=== PATIENT | female | born 1935 | race Caucasian/White ===

== ENCOUNTER 2019-08-12 18:12 | Inpatient (IN) | payer OTHER ==
[~2019-08-12] VITALS: Ht 167.6 cm; Wt 81.2 kg
[2019-08-12 18:49] LABS: Basophils # (auto) 0.1 uL; Basophils % (auto) 0.8 % (0.0-2.0); Eosinophils # (auto) 0.1 uL; Hematocrit 42.4 % (36.0-46.0); Hemoglobin 14.2 g/dL (12.2-16.2); Lymphocytes # (auto) 1.4 uL; Lymphocytes % (auto) 19.9 % (10.0-50.0); Mean Corpuscular Hemoglobin 30.4 pg (28.0-32.0); Mean Corpuscular Hgb Conc. 33.5 g/dL (32.0-36.0); Mean Corpuscular Volume 90.9 fL (80.0-100.0); Monocytes # (auto) 0.7 uL; Neutrophils # (auto) 4.8 uL; Neutrophils % (auto) 67.3 % (37.0-80.0); Platelet Count (auto) 258 10^3/uL (140-450); Red Blood Cells 4.66 10^6/uL (4.0-5.20); Red Cell Distribution Width 13.8 % (11.8-14.3); White Blood Cell 7.2 10^3/uL (4.4-10.8)
[2019-08-12 19:09] LABS: INR 1.04 (0.9-1.15)
[2019-08-12 19:28] LABS: Albumin 3.5 g/dL (3.4-5.0); Anion Gap 6 (5-15); Aspartate Aminotransferase 15 U/L (15-37); Blood Urea Nitrogen 12 mg/dL (7-18); Calcium 8.5 mg/dL (8.5-10.1); Carbon Dioxide 27 mmol/L (21-32); Chloride 106 mmol/L (98-107); GFR African American 123 mL/min; GFR Non-African American 101 mL/min; Glucose 124 mg/dL (74-106); Potassium 3.5 mmol/L (3.5-5.1); Sodium 139 mmol/L (136-145)
[2019-08-12 19:34] LABS: Alanine Aminotransferase 20 U/L (13-56); Alkaline Phosphatase 56 U/L (45-117); Bilirubin, Total 0.7 mg/dL (0.2-1.0); Total Protein 7.4 g/dL (6.4-8.2)
[2019-08-12] MEDS ORDERED: ACETAMINOPHEN 500 MG TAB PO PRN (22:45)
[2019-08-12] MEDS ORDERED: MORPHINE SULF INJ 2 MG/ML SYRINGE 1ML IV PRN (22:45)
[2019-08-12] MEDS ORDERED: LABETALOL HCL 5 MG/ML ML 20ML VIAL IV PRN (22:45)
[2019-08-12] MEDS ORDERED: NITROGLYCERIN 0.4 MG SL TAB SL PRN (22:45)
[2019-08-12] MEDS ORDERED: METOPROLOL TARTRATE 25 MG TAB PO ONE (22:45)
[2019-08-12] MEDS ORDERED: LISINOPRIL 10 MG TAB PO ONE (22:45)
[2019-08-13] MEDS ORDERED: CARV12.544 (01:38)
[2019-08-13] MEDS ORDERED: LOSA-39 (01:38)
[2019-08-13] MEDS ORDERED: ATOR20TA50 (01:38)
[2019-08-13] MEDS ORDERED: HYDR50TA15 (01:38)
[2019-08-13] MEDS ORDERED: CLO01T (01:38)
[2019-08-13] MEDS ORDERED: MIRT1TAB (01:38)
[2019-08-13] MEDS ORDERED: APIX2.5T (01:38)
[2019-08-13] MEDS ORDERED: ALPR0.255 (01:38)
[2019-08-13 01:39] VITALS: BP 198/87
--- NOTE | 2019-08-13 02:02 | NUR ---
tele admit from ER no SBAR received. pt arrived via stretcher alert and oriented x4. pt on room air no distress noted or expressed. pt able to transfer to bed without issue. pt oriented to this nurse, the room, the bed locked low and 2x rails up. pt shown use of call light. pt updated on plan of care. pt vitals as follow 198/87mmhg, [id number], temp 98.1f, vu82ffd, o2 92% on room air. pt has IV to left wrist that is saline locked. this nurse called ER Nurse, María Elena NASH in order to confirm that ordered meds metoprolol and lisinopril po scheduled at 2245 had not been given, this was confirmed, reason being "i had more critical patients". pt also has PRN IV labetalol available as needed for bp greater than 160mmhg systolic that was also not given. this nurse will dispense medications as ordered and continue to monitor patient for effectiveness. pt has no additional questions at this time. call light in reach, will continue to monitor. charge nurse david made aware of incident.
[2019-08-13 05:07] VITALS: BP 136/72
[2019-08-13 07:51] LABS: BUN/Creatinine Ratio 16.7; Calcium 8.5 mg/dL (8.5-10.1); Potassium 3.4 mmol/L (3.5-5.1)
[2019-08-13] MEDS ORDERED: PANT1INJ3 PO (08:43)
[2019-08-13 09:00] VITALS: BP 163/83
[2019-08-13] MEDS ORDERED: LISINOPRIL 10 MG TAB PO SCH (10:00)
[2019-08-13] MEDS ORDERED: METOPROLOL TARTRATE 25 MG TAB PO SCH (10:00)
[2019-08-13 10:20] LABS: Urine Bacteria NONE SEEN /hpf (None Seen); Urine Blood Negative /uL (Negative); Urine Specific Gravity 1.008 (1.001-1.035); Urine WBC 3 /hpf (0 - 5)
[2019-08-13] MEDS: ALPRAZolam 0.25 MG TAB PO PRN ×2 (11:52→20:39)
[2019-08-13 13:00] VITALS: BP 191/82
[2019-08-13] MEDS ORDERED: POTASSIUM CHL 20 Meq TABLET PO ONE (15:45)
[2019-08-13] MEDS ORDERED: LOSARTAN POTASSIUM 50 MG TAB PO ONE (15:45)
--- NOTE | 2019-08-13 15:49 | NUR ---
Dr. Lechuga at bedside discuss with patient and spoke over the phone with patient's son.
[2019-08-13 17:00] VITALS: BP 162/78
[2019-08-13] MEDS: CARVEDILOL 12.5 MG TAB PO SCH (17:36)
[2019-08-13] MEDS: APIXABAN 2.5 MG TAB PO SCH (17:36)
[2019-08-13] MEDS: cloNIDine HCL 0.1 MG TAB PO PRN (17:36)
[2019-08-13 22:00] VITALS: BP 134/64
[2019-08-13] MEDS ORDERED: hydrALAZINE HCL 25 MG TAB PO SCH (22:00)
[2019-08-13] MEDS: hydrALAZINE HCL 25 MG TAB PO SCH (22:13)
[2019-08-13] MEDS: PRIMIDONE 50 MG TAB PO SCH (22:13)
[2019-08-13] MEDS: ATORVASTATIN 20 MG TAB PO SCH (22:13)
[2019-08-13] MEDS: MIRTAZAPINE 30 MG TAB PO SCH (22:13)
[2019-08-14 05:01] VITALS: BP 109/50
[2019-08-14] MEDS: hydrALAZINE HCL 25 MG TAB PO SCH ×3 (06:00→21:49)
[2019-08-14 06:59] LABS: Calcium 8.6 mg/dL (8.5-10.1); Potassium 3.6 mmol/L (3.5-5.1)
[2019-08-14 07:02] LABS: BUN/Creatinine Ratio 21.9
[2019-08-14] MEDS: APIXABAN 2.5 MG TAB PO SCH ×2 (08:15→17:42)
[2019-08-14] MEDS: CARVEDILOL 12.5 MG TAB PO SCH ×2 (08:16→17:39)
[2019-08-14 08:40] VITALS: BP 147/69
--- NOTE | 2019-08-14 08:48 | NUR ---
Opening Shift Note Assumed care of patient, awake and alert. No S/S of distress/SOB or pain. Instructed on POC and to call for assist PRN, will continue to monitor for changes Q1hr and PRN.
--- NOTE | 2019-08-14 09:15 | NUR ---
ATTEMPTED [address] CONSULT WITH FOR CARDIO, WHEN OFFICE / EXCHANGE IS CALLED, I GET NOTHING BUT A BUSY SIGNAL. WILL CONTINUE TO CALL THROUGH OUT THE DAY, SAAD GÓMEZ AWARE.
[2019-08-14] MEDS: PANTOPRAZOLE 40 MG TAB PO SCH (10:02)
[2019-08-14] MEDS: LOSARTAN POTASSIUM 50 MG TAB PO SCH (10:03)
[2019-08-14 13:00] VITALS: BP 152/74
[2019-08-14 17:00] VITALS: BP 115/55
[2019-08-14] MEDS: cloNIDine HCL 0.1 MG TAB PO PRN (17:41)
[2019-08-14 20:00] VITALS: BP 129/58
[2019-08-14] MEDS: MIRTAZAPINE 30 MG TAB PO SCH (20:58)
[2019-08-14 21:46] VITALS: BP 104/46
[2019-08-14] MEDS: ATORVASTATIN 20 MG TAB PO SCH (21:49)
[2019-08-14] MEDS: ALPRAZolam 0.25 MG TAB PO PRN (21:49)
[2019-08-14] MEDS: PRIMIDONE 50 MG TAB PO SCH (21:49)
[2019-08-15 04:52] VITALS: BP 114/59
[2019-08-15] MEDS: hydrALAZINE HCL 25 MG TAB PO SCH ×2 (06:00→13:41)
[2019-08-15] MEDS: CARVEDILOL 12.5 MG TAB PO SCH (08:00)
[2019-08-15] MEDS: APIXABAN 2.5 MG TAB PO SCH (08:07)
[2019-08-15] MEDS: cloNIDine HCL 0.1 MG TAB PO PRN (08:08)
[2019-08-15 08:10] VITALS: BP 163/75
[2019-08-15 09:05] VITALS: BP 101/48
[2019-08-15] MEDS: PANTOPRAZOLE 40 MG TAB PO SCH (09:58)
[2019-08-15] MEDS: LOSARTAN POTASSIUM 50 MG TAB PO SCH (10:00)
--- NOTE | 2019-08-15 11:32 | NUR ---
SS (Felix) paged regarding patient has d/c order with HH. Awaiting to call back.
--- NOTE | 2019-08-15 12:31 | NUR ---
Received a call from Felix (NAHOMY) instructed to FAX : face sheet, order and H and P to [facility] and patient can go home.
--- NOTE | 2019-08-15 12:34 | NUR ---
Faxed H and P, order and Face sheet to [facility] #[phone].
[2019-08-15 12:36] VITALS: BP 120/52
--- NOTE | 2019-08-15 14:53 | NUR ---
Discharge instructions given as ordered. Encourage to follow up with PMD (Follow up with PCP Mann Breaux in 1-2 weeks #[phone] Address : [address] [place], [address] Follow up with [facility] )as instructed. All questions and concerns addressed. Patient verbalized understanding. Medication reconciliation form completed and copy given to patient. IV removed with catheter intact, pressure dressing applied. Telemetry unit returned to ICU. Patient taken to vehicle via wheelchair with all personal belongings, accompanied by staff and family member. No distress noted at time of departure.
== END 2019-08-15 14:53 | disposition home health service (06) | DRG 304 ==
LOC: EDBD 18:12 → ER 18:15 → TELE 18:16 → TELE-CENTR 23:32
PROVIDERS: ADMIT Internal Medicine; ATTEND Internal Medicine Geriatric Medicine
DX: I16.0 Hypertensive urgency (principal); I50.41 Acute combined systolic (congestive) and diastolic (congestive) heart failure; I11.0 Hypertensive heart disease with heart failure; I48.0 Paroxysmal atrial fibrillation; E87.6 Hypokalemia; F17.200 Nicotine dependence, unspecified, uncomplicated; F41.9 Anxiety disorder, unspecified; G47.10 Hypersomnia, unspecified; J44.9 Chronic obstructive pulmonary disease, unspecified; Z79.01 Long term (current) use of anticoagulants; Z79.899 Other long term (current) drug therapy; Z80.1 Family history of malignant neoplasm of trachea, bronchus and lung; Z82.3 Family history of stroke; Z85.3 Personal history of malignant neoplasm of breast; Z82.5 Family history of asthma and other chronic lower respiratory diseases; Z86.73 Personal history of transient ischemic attack (TIA), and cerebral infarction without residual deficits; Z91.041 Radiographic dye allergy status; Z90.49 Acquired absence of other specified parts of digestive tract; Z90.710 Acquired absence of both cervix and uterus
CPT/HCPCS: 36415; 71045; 80048; 80053; 81001; 83880; 84443; 84484; 85025; 85610; 85730; 93005; 93306; 97116; 97163; 97530; G0378

== ENCOUNTER 2020-07-04 16:55 | Inpatient (IN) | payer OTHER ==
[~2020-07-04] VITALS: Ht 162.6 cm; Wt 74.3 kg
[~2020-07-04 16:55] MED LIST: ALPR0.255; APIX2.5T; ATOR20TA50; CARV12.544; CLO01T; HYDR50TA15; LOSA-39; MIRT1TAB; PANT1INJ3 PO
[2020-07-04] MEDS ORDERED: SODIUM CHLORIDE 0.9% 500 ML IVB ONE (17:23)
[2020-07-04 18:07] LABS: INR 1.05 (0.9-1.15)
[2020-07-04 18:14] LABS: Calcium 8.5 mg/dL (8.5-10.1); Chloride 69 mmol/L (98-107)
[2020-07-04 18:23] LABS: Alanine Aminotransferase 33 U/L (13-56); Albumin 3.6 g/dL (3.4-5.0); Alkaline Phosphatase 68 U/L (45-117); Anion Gap 13 (5-15); Aspartate Aminotransferase 51 U/L (15-37); BUN/Creatinine Ratio 32.8; Bilirubin, Total 2.4 mg/dL (0.2-1.0); Blood Urea Nitrogen 19 mg/dL (7-18); Carbon Dioxide 27 mmol/L (21-32); GFR African American 127 mL/min; GFR Non-African American 105 mL/min; Glucose 129 mg/dL (74-106); Total Protein 7.4 g/dL (6.4-8.2)
[2020-07-04 18:32] LABS: Basophils # (auto) 0.1 10 ^3/uL (0-0.2); Basophils % (auto) 0.8 % (0.0-2.0); Eosinophils # (auto) 0 10 ^3/uL (0-0.8); Hematocrit 42.1 % (36.0-46.0); Hemoglobin 15.5 g/dL (12.2-16.2); Lymphocytes # (auto) 1.5 10 ^3/uL (0.4-5.4); Lymphocytes % (auto) 9.3 % (10.0-50.0); Mean Corpuscular Hemoglobin 30.7 pg (28.0-32.0); Mean Corpuscular Hgb Conc. 36.9 g/dL (32.0-36.0); Mean Corpuscular Volume 83.1 fL (80.0-100.0); Monocytes # (auto) 1.7 10 ^3/uL (0-1.3); Monocytes % (auto) 10.6 % (0.0-12.0); Neutrophils % (auto) 79.3 % (37.0-80.0); Nucleated Red Blood Cells % 0.1 %; Platelet Count (auto) 310 10^3/uL (140-450); Red Blood Cells 5.06 10^6/uL (4.0-5.20); Red Cell Distribution Width 12.9 % (11.8-14.3); White Blood Cell 16.4 10^3/uL (4.4-10.8)
[2020-07-04 18:32] LABS: Urine Bacteria NONE SEEN /hpf (None Seen); Urine Blood TRACE /uL (Negative); Urine Specific Gravity 1.011 (1.001-1.035); Urine WBC 1 /hpf (0 - 5)
[2020-07-04 19:11] LABS: Sodium 109 mmol/L (136-145)
[2020-07-04 19:12] LABS: Potassium 2.2 mmol/L (3.5-5.1)
[2020-07-04] MEDS ORDERED: POTASSIUM CHL 20MEQ/100ML 100 ML IV ONE (19:30)
[2020-07-04] MEDS ORDERED: SODIUM CHL 3% 500 ML IV ONE ×2 (19:30→20:45)
[2020-07-04] MEDS ORDERED: NITROGLYCERIN 0.4 MG SL TAB SL PRN (20:45)
[2020-07-04] MEDS ORDERED: POTASSIUM CHL 20 Meq TABLET PO ONE (20:45)
[2020-07-04] MEDS ORDERED: MORPHINE SULF INJ 2 MG/ML SYRINGE 1ML IV PRN (20:45)
[2020-07-04] MEDS ORDERED: TEMAZEPAM 15 MG CAP PO PRN (20:45)
[2020-07-04] MEDS ORDERED: ONDANSETRON HCL 4 MG/2 ML VIAL IV PRN (20:45)
[2020-07-04] MEDS ORDERED: DEXTROSE (50%) 50ML SYRG IV PRN (20:45)
[2020-07-04] MEDS ORDERED: ACETAMINOPHEN 325 MG TAB PO PRN (20:45)
[2020-07-04] MEDS: CARVEDILOL 12.5 MG TAB PO SCH (21:59)
[2020-07-04] MEDS: hydrALAZINE HCL 25 MG TAB PO SCH (21:59)
[2020-07-04] MEDS: ATORVASTATIN 20 MG TAB PO SCH (22:00)
[2020-07-04] MEDS ORDERED: ENOXAPARIN SOD 40 MG/0.4 ML SYRINGE SC SCH (22:00)
[2020-07-04] MEDS: InsuLIN REG 1unit/0.01ml Soln (100units/ml) SC SCH (22:00)
[2020-07-04] MEDS: ACCU-CHEK COMFORT CURVE STRIP VI SCH (22:00)
[2020-07-04 23:24] VITALS: BP 113/65
[2020-07-05] MEDS ORDERED: POTASSIUM CHL 20 Meq TABLET PO ONE ×3 (02:45→18:30)
[2020-07-05 05:11] VITALS: BP 140/58
[2020-07-05] MEDS: InsuLIN REG 1unit/0.01ml Soln (100units/ml) SC SCH ×4 (06:17→22:00)
[2020-07-05] MEDS: ACCU-CHEK COMFORT CURVE STRIP VI SCH ×4 (06:18→23:18)
[2020-07-05 06:41] LABS: Albumin 2.9 g/dL (3.4-5.0); Calcium 7.5 mg/dL (8.5-10.1)
[2020-07-05 06:46] LABS: BUN/Creatinine Ratio 39.5; Bilirubin, Total 1.9 mg/dL (0.2-1.0); Total Protein 5.9 g/dL (6.4-8.2)
[2020-07-05 06:56] LABS: Potassium 2.5 mmol/L (3.5-5.1)
[2020-07-05 08:10] LABS: Basophils # (auto) 0 10 ^3/uL (0-0.2); Basophils % (auto) 0.2 % (0.0-2.0); Eosinophils # (auto) 0 10 ^3/uL (0-0.8); Eosinophils % (auto) 0.1 % (0.0-7.0); Hematocrit 38.1 % (36.0-46.0); Hemoglobin 13.7 g/dL (12.2-16.2); Lymphocytes # (auto) 1.6 10 ^3/uL (0.4-5.4); Lymphocytes % (auto) 14.8 % (10.0-50.0); Mean Corpuscular Hemoglobin 30.7 pg (28.0-32.0); Mean Corpuscular Volume 85.2 fL (80.0-100.0); Monocytes # (auto) 1.4 10 ^3/uL (0-1.3); Monocytes % (auto) 13.2 % (0.0-12.0); Neutrophils # (auto) 7.7 10 ^3/uL (1.6-8.6); Neutrophils % (auto) 71.7 % (37.0-80.0); Nucleated Red Blood Cells % 0.2 %; Platelet Count (auto) 254 10^3/uL (140-450); Red Blood Cells 4.47 10^6/uL (4.0-5.20); Red Cell Distribution Width 12.8 % (11.8-14.3); White Blood Cell 10.7 10^3/uL (4.4-10.8)
[2020-07-05 09:00] VITALS: BP 101/55
[2020-07-05] MEDS: hydrALAZINE HCL 25 MG TAB PO SCH ×2 (09:41→22:00)
[2020-07-05] MEDS: PANTOPRAZOLE 40 MG TAB PO SCH (09:42)
[2020-07-05] MEDS: APIXABAN 2.5 MG TAB PO SCH ×2 (09:42→23:04)
[2020-07-05] MEDS: CARVEDILOL 12.5 MG TAB PO SCH ×2 (09:42→22:00)
[2020-07-05] MEDS ORDERED: SODIUM CHLORIDE 0.9% 1,000 ML IV SCH (10:15)
[2020-07-05] MEDS: D5W 5% 1,000 ML IV SCH ×2 (12:28→15:54)
[2020-07-05 12:53] LABS: BUN/Creatinine Ratio 35.4; Blood Urea Nitrogen 17 mg/dL (7-18); Calcium 7.5 mg/dL (8.5-10.1); Carbon Dioxide 26 mmol/L (21-32); Chloride 86 mmol/L (98-107); GFR African American 158 mL/min; GFR Non-African American 131 mL/min; Glucose 116 mg/dL (74-106); Potassium 3.1 mmol/L (3.5-5.1)
[2020-07-05 12:55] LABS: Anion Gap 7 (5-15); Sodium 119 mmol/L (136-145)
[2020-07-05 13:00] VITALS: BP 105/52
[2020-07-05 15:37] LABS: Calcium 7.5 mg/dL (8.5-10.1)
[2020-07-05 15:39] LABS: BUN/Creatinine Ratio 38.5
[2020-07-05 16:59] VITALS: BP 112/56
[2020-07-05] MEDS ORDERED: AMLO5TAB15 PO (18:41)
[2020-07-05] MEDS ORDERED: HCTZ25T PO (18:41)
[2020-07-05] MEDS ORDERED: MIRT1TAB39 PO (18:41)
[2020-07-05] MEDS ORDERED: FUR20T PO (18:41)
[2020-07-05 18:42] LABS: BUN/Creatinine Ratio 45.2; Calcium 7.8 mg/dL (8.5-10.1); Potassium 3.1 mmol/L (3.5-5.1)
[2020-07-05] MEDS ORDERED: MULTTAB99 GT (18:55)
[2020-07-05 22:03] VITALS: BP 109/49
[2020-07-05] MEDS: SODIUM CHLORIDE 1 GM TAB PO SCH (23:04)
[2020-07-05 23:18] LABS: Potassium 3.4 mmol/L (3.5-5.1)
[2020-07-05] MEDS: ATORVASTATIN 20 MG TAB PO SCH (23:18)
[2020-07-05 23:20] LABS: BUN/Creatinine Ratio 34.1
[2020-07-06 05:00] VITALS: BP 119/56
[2020-07-06] MEDS: InsuLIN REG 1unit/0.01ml Soln (100units/ml) SC SCH ×4 (06:27→22:00)
[2020-07-06] MEDS: ACCU-CHEK COMFORT CURVE STRIP VI SCH ×4 (06:27→23:03)
[2020-07-06 06:55] LABS: Magnesium 2.4 mg/dL (1.6-2.6); Potassium 3.5 mmol/L (3.5-5.1)
[2020-07-06 06:57] LABS: BUN/Creatinine Ratio 33.3; Phosphorus 1.1 mg/dL (2.5-4.90)
[2020-07-06] MEDS ORDERED: SODIUM CHLORIDE 1 GM TAB PO ONE (07:45)
[2020-07-06 08:45] VITALS: BP 129/62
[2020-07-06] MEDS: SODIUM CHLORIDE 1 GM TAB PO SCH (09:51)
[2020-07-06] MEDS: PANTOPRAZOLE 40 MG TAB PO SCH (09:51)
[2020-07-06] MEDS: CARVEDILOL 12.5 MG TAB PO SCH (09:53)
[2020-07-06] MEDS: APIXABAN 2.5 MG TAB PO SCH ×2 (09:53→23:02)
[2020-07-06] MEDS: hydrALAZINE HCL 25 MG TAB PO SCH ×2 (09:54→23:02)
[2020-07-06 11:44] LABS: BUN/Creatinine Ratio 35.6
[2020-07-06 13:00] VITALS: BP 110/57
[2020-07-06 16:42] VITALS: BP 121/57
[2020-07-06 17:53] LABS: BUN/Creatinine Ratio 31.1; Calcium 7.8 mg/dL (8.5-10.1); Potassium 3.8 mmol/L (3.5-5.1)
[2020-07-06 21:35] VITALS: BP_SYST 127; BP_SYST 153; BP_DIAS 50; BP_DIAS 74
[2020-07-06] MEDS: ATORVASTATIN 20 MG TAB PO SCH (23:03)
[2020-07-06 23:57] LABS: BUN/Creatinine Ratio 36.7; Potassium 3.7 mmol/L (3.5-5.1)
[2020-07-07] MEDS: CARVEDILOL 12.5 MG TAB PO SCH ×2 (00:12→09:59)
[2020-07-07 05:00] VITALS: BP 141/71
[2020-07-07] MEDS: ACCU-CHEK COMFORT CURVE STRIP VI SCH ×2 (06:32→11:30)
[2020-07-07] MEDS: InsuLIN REG 1unit/0.01ml Soln (100units/ml) SC SCH ×2 (06:32→11:30)
[2020-07-07 07:05] LABS: BUN/Creatinine Ratio 36.6; Potassium 3.7 mmol/L (3.5-5.1)
[2020-07-07] MEDS ORDERED: SODIUM CHLORIDE 1 GM TAB PO ONE (07:45)
[2020-07-07 09:00] VITALS: BP 122/73
[2020-07-07] MEDS: APIXABAN 2.5 MG TAB PO SCH (09:57)
[2020-07-07] MEDS: PANTOPRAZOLE 40 MG TAB PO SCH (09:58)
[2020-07-07] MEDS: hydrALAZINE HCL 25 MG TAB PO SCH (09:58)
[2020-07-07 11:50] LABS: BUN/Creatinine Ratio 32.5; Calcium 7.9 mg/dL (8.5-10.1); Potassium 4.8 mmol/L (3.5-5.1)
== END 2020-07-07 13:50 | disposition home health service (06) | DRG 641 ==
LOC: EDBD 16:55 → ER 16:55 → EDSEX 16:55 → TELE 16:56 → TELE-WESTW 23:22
PROVIDERS: ADMIT Nurse Practitioner; ATTEND Internal Medicine Geriatric Medicine
DX: E87.1 Hypo-osmolality and hyponatremia (principal); I48.20 Chronic atrial fibrillation, unspecified; E87.6 Hypokalemia; E11.9 Type 2 diabetes mellitus without complications; J44.9 Chronic obstructive pulmonary disease, unspecified; F41.9 Anxiety disorder, unspecified; G25.0 Essential tremor; I11.0 Hypertensive heart disease with heart failure; I50.9 Heart failure, unspecified; E78.5 Hyperlipidemia, unspecified; Z80.1 Family history of malignant neoplasm of trachea, bronchus and lung; Z82.49 Family history of ischemic heart disease and other diseases of the circulatory system; Z79.01 Long term (current) use of anticoagulants; Z90.710 Acquired absence of both cervix and uterus; Z86.73 Personal history of transient ischemic attack (TIA), and cerebral infarction without residual deficits; Z82.5 Family history of asthma and other chronic lower respiratory diseases; Z91.041 Radiographic dye allergy status; Z90.49 Acquired absence of other specified parts of digestive tract
CPT/HCPCS: 36415; 51702; 70450; 71045; 80048; 80053; 81001; 82962; 83735; 83880; 83930; 83935; 84100; 84132; 84295; 84300; 84484; 84550; 85025; 85610; 85730; 96361; 96365; 96366; G0378; J3480

== ENCOUNTER 2021-08-13 13:17 | Emergency (ER) | payer OTHER ==
[~2021-08-13] VITALS: Ht 167.6 cm; Wt 67.6 kg
[2021-08-13 13:17] VITALS: BP 162/96
[~2021-08-13 13:17] MED LIST changes: -CLO01T; +FUR20T PO; +HYDR25TA5 PO; -HYDR50TA15; -MIRT1TAB; +MIRT1TAB39 PO; +MULTTAB99 GT; -PANT1INJ3 PO
[2021-08-13] MEDS ORDERED: cloNIDine HCL 0.1 MG TAB PO ONE (13:45)
[2021-08-13 15:23] LABS: Basophils # (auto) 0.1 10 ^3/uL (0-0.2); Basophils % (auto) 0.8 % (0.0-2.0); Eosinophils # (auto) 0.1 10 ^3/uL (0-0.8); Eosinophils % (auto) 1.6 % (0.0-7.0); Hematocrit 47.7 % (36.0-46.0); Hemoglobin 16.2 g/dL (12.2-16.2); Lymphocytes # (auto) 1.8 10 ^3/uL (0.4-5.4); Lymphocytes % (auto) 20.7 % (10.0-50.0); Mean Corpuscular Hemoglobin 30.6 pg (28.0-32.0); Mean Corpuscular Hgb Conc. 34.1 g/dL (32.0-36.0); Mean Corpuscular Volume 89.9 fL (80.0-100.0); Monocytes # (auto) 0.7 10 ^3/uL (0-1.3); Monocytes % (auto) 7.5 % (0.0-12.0); Neutrophils # (auto) 6.2 10 ^3/uL (1.6-8.6); Neutrophils % (auto) 69.4 % (37.0-80.0); Nucleated Red Blood Cells % 0.2 %; Red Blood Cells 5.31 10^6/uL (4.0-5.20); Red Cell Distribution Width 13.6 % (11.8-14.3); White Blood Cell 8.9 10^3/uL (4.4-10.8)
[2021-08-13 15:35] LABS: Potassium 3.9 mmol/L (3.5-5.1)
[2021-08-13 15:54] LABS: Albumin 3.8 g/dL (3.4-5.0); Bilirubin, Total 0.8 mg/dL (0.2-1.0); Calcium 9.5 mg/dL (8.5-10.1); Total Protein 7.9 g/dL (6.4-8.2)
== END 2021-08-13 17:37 | disposition home or self-care (01) ==
LOC: EDBD 13:17 → ER 13:17 → EDSEX 13:17 → ER 17:37
DX: I16.0 Hypertensive urgency (principal); I10 Essential (primary) hypertension; F41.9 Anxiety disorder, unspecified; J44.9 Chronic obstructive pulmonary disease, unspecified; E11.9 Type 2 diabetes mellitus without complications; E78.5 Hyperlipidemia, unspecified; Z90.49 Acquired absence of other specified parts of digestive tract; Z87.891 Personal history of nicotine dependence; Z86.73 Personal history of transient ischemic attack (TIA), and cerebral infarction without residual deficits
CPT/HCPCS: 36415; 80053; 85025; 93005

== ENCOUNTER 2024-07-20 15:40 | Inpatient (IN) | payer OTHER ==
[~2024-07-20] VITALS: Ht 165.1 cm; Wt 60.4 kg
[~2024-07-20 15:40] MED LIST changes: -FUR20T PO; +FURO20TA4 PO; -LOSA-39; +LOSA-535
[2024-07-20] MEDS: cloNIDine HCL 0.1 MG TAB PO ONE (16:16)
[2024-07-20 16:38] LABS: Basophils # (auto) 0.1 10 ^3/uL (0-0.2); Basophils % (auto) 0.8 % (0.0-2.0); Eosinophils # (auto) 0.1 10 ^3/uL (0-0.8); Eosinophils % (auto) 1.1 % (0.0-7.0); Hematocrit 47.1 % (36.0-46.0); Hemoglobin 15.9 g/dL (12.2-16.2); Lymphocytes # (auto) 2.7 10 ^3/uL (0.4-5.4); Mean Corpuscular Hemoglobin 30.3 pg (28.0-32.0); Mean Corpuscular Hgb Conc. 33.8 g/dL (32.0-36.0); Mean Corpuscular Volume 89.8 fL (80.0-100.0); Monocytes # (auto) 0.8 10 ^3/uL (0-1.3); Monocytes % (auto) 8.5 % (0.0-12.0); Neutrophils # (auto) 6.1 10 ^3/uL (1.6-8.6); Neutrophils % (auto) 62.6 % (37.0-80.0); Nucleated Red Blood Cells % 0.2 %; Platelet Count (auto) 284 10^3/uL (140-450); Red Blood Cells 5.25 10^6/uL (4.0-5.20); Red Cell Distribution Width 14.7 % (11.8-14.3); White Blood Cell 9.8 10^3/uL (4.4-10.8)
[2024-07-20] MEDS: hydrALAZINE HCL 20 MG/ML VL IV ONE (16:39)
[2024-07-20 16:57] LABS: Alanine Aminotransferase 23 U/L (7-40); Albumin 4.8 g/dL (3.2-4.8); Alkaline Phosphatase 73 U/L (46-116); Anion Gap 10 (5-15); Aspartate Aminotransferase 33 U/L (13-40); BUN/Creatinine Ratio 16.3 (10.0-20.0); Bilirubin, Total 1.3 mg/dL (0.2-1.0); Blood Urea Nitrogen 8 mg/dL (9-23); Calcium 10.4 mg/dL (8.7-10.4); Carbon Dioxide 24 mmol/L (20-31); Chloride 96 mmol/L (98-107); Glucose 141 mg/dL (74-106); Potassium 4.1 mmol/L (3.5-5.1); Sodium 130 mmol/L (136-145)
[2024-07-20 16:58] LABS: Total Protein 8.2 g/dL (5.7-8.2)
[2024-07-20] MEDS ORDERED: NITROGLYCERIN 0.4 MG SL TAB SL PRN (19:00)
[2024-07-20] MEDS ORDERED: HYDROcodone-ACET 5/325MG TAB PO PRN (19:00)
[2024-07-20] MEDS ORDERED: MORPHINE SULFATE INJ 2 MG/ml SYRG IV PRN (19:00)
[2024-07-20] MEDS ORDERED: ONDANSETRON HCL 4 MG/2 ML VIAL IV PRN (19:00)
[2024-07-20] MEDS ORDERED: ACETAMINOPHEN 325 MG TAB PO PRN (19:00)
[2024-07-20] MEDS ORDERED: DOCUSATE SOD 100 MG CAP PO PRN (19:00)
[2024-07-20 19:20] VITALS: PULSE 71; RESP 14; O2SAT 7
[2024-07-20] MEDS ORDERED: AMLO1TAB21 PO (19:38)
[2024-07-20] MEDS ORDERED: CARV6.2551 PO (19:38)
[2024-07-20] MEDS ORDERED: HYDR25TA87 PO (19:38)
[2024-07-20] MEDS ORDERED: hydrALAZINE HCL 20 MG/ML VL IV PRN (19:45)
[2024-07-20 22:05] VITALS: BP 150/63; PULSE 67; RESP 18; TEMP 98.5; O2SAT 96
[2024-07-20 22:07] VITALS: BP 150/63; PULSE 67; RESP 18; TEMP 98.5; O2SAT 96
[2024-07-20] MEDS ORDERED: MIRT-94 PO (22:11)
[2024-07-20] MEDS: ATORVASTATIN 20 MG TAB PO SCH (22:16)
[2024-07-20] MEDS: ALPRAZolam 0.25 MG TAB PO PRN (22:16)
[2024-07-20] MEDS: APIXABAN 2.5 MG TAB PO SCH (22:16)
[2024-07-20] MEDS: CARVEDILOL 3.125 MG TAB PO SCH (22:17)
[2024-07-20] MEDS: SODIUM CHLOR 0.9% PF (SALINE LOCK) 10ML VIAL/SYR IV SCH (22:17)
[2024-07-21] VITALS (9 sets, daily range): BP systolic 86–178; BP diastolic 34–84; PULSE 50–91; RESP 16–19; TEMP 97.8–98.5; O2SAT 91–96
[2024-07-21 05:23] LABS: Basophils # (auto) 0 10 ^3/uL (0-0.2); Basophils % (auto) 0.6 % (0.0-2.0); Eosinophils # (auto) 0.2 10 ^3/uL (0-0.8); Eosinophils % (auto) 3.4 % (0.0-7.0); Hematocrit 40.4 % (36.0-46.0); Hemoglobin 14.3 g/dL (12.2-16.2); Lymphocytes # (auto) 2.2 10 ^3/uL (0.4-5.4); Lymphocytes % (auto) 33.1 % (10.0-50.0); Mean Corpuscular Hemoglobin 31.6 pg (28.0-32.0); Mean Corpuscular Hgb Conc. 35.3 g/dL (32.0-36.0); Mean Corpuscular Volume 89.5 fL (80.0-100.0); Monocytes # (auto) 0.8 10 ^3/uL (0-1.3); Monocytes % (auto) 12.5 % (0.0-12.0); Neutrophils # (auto) 3.4 10 ^3/uL (1.6-8.6); Neutrophils % (auto) 50.4 % (37.0-80.0); Nucleated Red Blood Cells % 0.1 %; Platelet Count (auto) 232 10^3/uL (140-450); Red Blood Cells 4.51 10^6/uL (4.0-5.20); Red Cell Distribution Width 14.4 % (11.8-14.3); White Blood Cell 6.8 10^3/uL (4.4-10.8)
[2024-07-21 05:24] LABS: Alanine Aminotransferase 17 U/L (7-40); Alkaline Phosphatase 61 U/L (46-116); Calcium 9.5 mg/dL (8.7-10.4); Carbon Dioxide 30 mmol/L (20-31); Chloride 98 mmol/L (98-107); Glucose 101 mg/dL (74-106)
[2024-07-21 05:25] LABS: Anion Gap 5 (5-15); Aspartate Aminotransferase 18 U/L (13-40); BUN/Creatinine Ratio 17.9 (10.0-20.0); Bilirubin, Total 1.3 mg/dL (0.2-1.0); Blood Urea Nitrogen 12 mg/dL (9-23); Potassium 3.9 mmol/L (3.5-5.1); Sodium 133 mmol/L (136-145); Total Protein 6.7 g/dL (5.7-8.2)
[2024-07-21] MEDS: hydroCHLOROthiazide 25 MG TAB PO SCH (10:42)
[2024-07-21] MEDS: LOSARTAN POTASSIUM 50 MG TAB PO SCH (10:42)
[2024-07-21] MEDS: amLODIPine BESYLATE 5 MG TAB PO SCH (10:43)
[2024-07-21] MEDS: amLODIPine BESYLATE 5 MG TAB PO ONE (13:44)
[2024-07-21] MEDS: CARVEDILOL 12.5 MG TAB PO SCH (21:18)
[2024-07-22] VITALS (8 sets, daily range): BP systolic 140–163; BP diastolic 57–85; PULSE 68–83; RESP 14–18; TEMP 97.2–98; O2SAT 90–97
[2024-07-22] MEDS: hydrALAZINE HCL 20 MG/ML VL IV ONE (00:59)
[2024-07-22] MEDS: amLODIPine BESYLATE 5 MG TAB PO SCH (06:40)
[2024-07-22] MEDS: ALPRAZolam 0.25 MG TAB PO ONE (06:40)
[2024-07-22 07:32] LABS: Alanine Aminotransferase 18 U/L (7-40); Albumin 4.4 g/dL (3.2-4.8); Alkaline Phosphatase 73 U/L (46-116); Anion Gap 8 (5-15); Aspartate Aminotransferase 21 U/L (13-40); BUN/Creatinine Ratio 24.4 (10.0-20.0); Bilirubin, Total 1.5 mg/dL (0.2-1.0); Blood Urea Nitrogen 10 mg/dL (9-23); Carbon Dioxide 27 mmol/L (20-31); Chloride 90 mmol/L (98-107); Glucose 152 mg/dL (74-106); Potassium 3.4 mmol/L (3.5-5.1); Sodium 125 mmol/L (136-145); Total Protein 7.5 g/dL (5.7-8.2)
[2024-07-22] MEDS: SODIUM CHLORIDE 0.9% 1,000 ML IV ONE ×2 (10:03→20:26)
[2024-07-22 12:38] LABS: Chloride 92 mmol/L (98-107); Potassium 3.1 mmol/L (3.5-5.1); Sodium 124 mmol/L (136-145)
[2024-07-22 12:39] LABS: Anion Gap 6 (5-15); Carbon Dioxide 26 mmol/L (20-31)
[2024-07-22 12:40] LABS: Calcium 9.7 mg/dL (8.7-10.4)
[2024-07-22 12:45] LABS: Blood Urea Nitrogen 10 mg/dL (9-23); Glucose 128 mg/dL (74-106)
[2024-07-22] MEDS: POTASSIUM CHL 20 Meq TABLET PO ONE ×2 (14:26→14:30)
[2024-07-22] MEDS: MELATONIN 5 MG TAB PO ONE (22:12)
[2024-07-23] VITALS (8 sets, daily range): BP systolic 106–164; BP diastolic 53–77; PULSE 51–81; RESP 14–60; TEMP 97.4–98.2; O2SAT 90–97
[2024-07-23] MEDS: ALPRAZolam 0.25 MG TAB PO ONE (06:36)
[2024-07-23 07:34] LABS: Chloride 90 mmol/L (98-107); Potassium 3.6 mmol/L (3.5-5.1); Sodium 121 mmol/L (136-145)
[2024-07-23 07:35] LABS: Anion Gap 6 (5-15); Calcium 8.9 mg/dL (8.7-10.4); Carbon Dioxide 25 mmol/L (20-31)
[2024-07-23 07:38] LABS: Basophils # (auto) 0 10 ^3/uL (0-0.2); Basophils % (auto) 0.2 % (0.0-2.0); Eosinophils # (auto) 0.1 10 ^3/uL (0-0.8); Eosinophils % (auto) 0.7 % (0.0-7.0); Hematocrit 39.2 % (36.0-46.0); Lymphocytes # (auto) 1.7 10 ^3/uL (0.4-5.4); Mean Corpuscular Hemoglobin 31.3 pg (28.0-32.0); Mean Corpuscular Hgb Conc. 35.6 g/dL (32.0-36.0); Monocytes # (auto) 0.7 10 ^3/uL (0-1.3); Monocytes % (auto) 9.4 % (0.0-12.0); Neutrophils # (auto) 5.3 10 ^3/uL (1.6-8.6); Neutrophils % (auto) 67.7 % (37.0-80.0); Platelet Count (auto) 235 10^3/uL (140-450); Red Blood Cells 4.46 10^6/uL (4.0-5.20); Red Cell Distribution Width 13.9 % (11.8-14.3); White Blood Cell 7.8 10^3/uL (4.4-10.8)
[2024-07-23 07:40] LABS: BUN/Creatinine Ratio 28.2 (10.0-20.0); Blood Urea Nitrogen 11 mg/dL (9-23); Glucose 126 mg/dL (74-106)
[2024-07-23] MEDS: hydroCHLOROthiazide 25 MG TAB PO SCH (09:22)
[2024-07-23] MEDS: CARVEDILOL 12.5 MG TAB PO SCH (09:24)
[2024-07-23] MEDS: SODIUM CHLORIDE 0.9% 1,000 ML IV ONE (09:25)
[2024-07-23] MEDS: MIRTAZAPINE 30 MG TAB PO SCH (09:25)
[2024-07-24] VITALS (8 sets, daily range): BP systolic 119–155; BP diastolic 61–80; PULSE 63–80; RESP 17–60; TEMP 97.7–98; O2SAT 91–97
[2024-07-24 06:43] LABS: Basophils # (auto) 0 10 ^3/uL (0-0.2); Basophils % (auto) 0.3 % (0.0-2.0); Eosinophils # (auto) 0.1 10 ^3/uL (0-0.8); Eosinophils % (auto) 1.2 % (0.0-7.0); Hematocrit 40.3 % (36.0-46.0); Hemoglobin 14.2 g/dL (12.2-16.2); Lymphocytes # (auto) 2.3 10 ^3/uL (0.4-5.4); Mean Corpuscular Hemoglobin 30.7 pg (28.0-32.0); Mean Corpuscular Hgb Conc. 35.3 g/dL (32.0-36.0); Mean Corpuscular Volume 87.2 fL (80.0-100.0); Monocytes # (auto) 0.8 10 ^3/uL (0-1.3); Monocytes % (auto) 10.3 % (0.0-12.0); Neutrophils # (auto) 4.5 10 ^3/uL (1.6-8.6); Neutrophils % (auto) 58.2 % (37.0-80.0); Nucleated Red Blood Cells % 0.2 %; Platelet Count (auto) 251 10^3/uL (140-450); Red Blood Cells 4.62 10^6/uL (4.0-5.20); Red Cell Distribution Width 13.7 % (11.8-14.3); White Blood Cell 7.7 10^3/uL (4.4-10.8)
[2024-07-24 06:56] LABS: Anion Gap 6 (5-15); Carbon Dioxide 26 mmol/L (20-31); Chloride 86 mmol/L (98-107); Potassium 3.1 mmol/L (3.5-5.1)
[2024-07-24 06:58] LABS: Calcium 8.8 mg/dL (8.7-10.4)
[2024-07-24 07:02] LABS: BUN/Creatinine Ratio 22.2 (10.0-20.0); Blood Urea Nitrogen 8 mg/dL (9-23); Glucose 116 mg/dL (74-106)
[2024-07-24 07:12] LABS: Sodium 118 mmol/L (136-145)
[2024-07-24] MEDS: ALPRAZolam 0.25 MG TAB PO PRN (10:47)
[2024-07-24] MEDS: MAALOX PLUS or MAALOX 30 ML PO ONE (21:56)
[2024-07-25] VITALS (8 sets, daily range): BP systolic 110–133; BP diastolic 50–70; PULSE 52–69; RESP 16–20; TEMP 97.6–98.1; O2SAT 92–96
[2024-07-25] MEDS: SODIUM CHLORIDE 0.9% 1,000 ML IV SCH (00:04)
[2024-07-25 07:22] LABS: Chloride 86 mmol/L (98-107); Potassium 3.3 mmol/L (3.5-5.1)
[2024-07-25 07:23] LABS: Anion Gap 6 (5-15); Carbon Dioxide 24 mmol/L (20-31)
[2024-07-25 07:24] LABS: Calcium 8.4 mg/dL (8.7-10.4)
[2024-07-25 07:28] LABS: BUN/Creatinine Ratio 22.2 (10.0-20.0); Blood Urea Nitrogen 8 mg/dL (9-23); Glucose 96 mg/dL (74-106)
[2024-07-25 07:41] LABS: Sodium 116 mmol/L (136-145)
[2024-07-25] MEDS: FUROSEMIDE 20 MG/2 ML VIAL IV ONE (11:43)
[2024-07-25] MEDS: POTASSIUM CHL 20 Meq TABLET PO ONE (13:15)
[2024-07-25 16:14] LABS: Chloride 88 mmol/L (98-107); Potassium 3.1 mmol/L (3.5-5.1)
[2024-07-25 16:15] LABS: Anion Gap 4 (5-15); Calcium 9.2 mg/dL (8.7-10.4); Carbon Dioxide 30 mmol/L (20-31)
[2024-07-25 16:19] LABS: Uric Acid 2.4 mg/dL (3.1-7.8)
[2024-07-25 16:20] LABS: Blood Urea Nitrogen 13 mg/dL (9-23); Glucose 118 mg/dL (74-106)
[2024-07-25 16:36] LABS: Sodium 122 mmol/L (136-145)
[2024-07-25 17:57] LABS: Sodium Urine 81 mmol/L (40-220)
[2024-07-26] VITALS (8 sets, daily range): BP systolic 98–137; BP diastolic 47–66; PULSE 60–88; RESP 16–20; TEMP 97.8–98.3; O2SAT 92–100
[2024-07-26 07:06] LABS: Chloride 95 mmol/L (98-107); Potassium 3.5 mmol/L (3.5-5.1)
[2024-07-26 07:07] LABS: Anion Gap 5 (5-15); Carbon Dioxide 28 mmol/L (20-31)
[2024-07-26 07:08] LABS: Calcium 9.3 mg/dL (8.7-10.4)
[2024-07-26 07:12] LABS: BUN/Creatinine Ratio 24.4 (10.0-20.0); Blood Urea Nitrogen 11 mg/dL (9-23); Glucose 125 mg/dL (74-106)
[2024-07-26 07:13] LABS: Sodium 128 mmol/L (136-145)
[2024-07-26] MEDS: FUROSEMIDE 20 MG/2 ML VIAL IV SCH (14:01)
[2024-07-26 20:19] LABS: Urine Bacteria None Seen /hpf (None Seen)
[2024-07-26 20:40] LABS: Urine Blood Negative /uL (Negative); Urine Clarity Clear (Clear); Urine Color Light-Yellow (Yellow); Urine Protein, UAD TRACE (Negative); Urine Specific Gravity 1.007 (1.001-1.035); Urine Urobilinogen Normal (Negative); Urine WBC 3 /hpf (0 - 5); Urine pH 5.5 (5.0-9.0)
[2024-07-27 01:00] VITALS: BP 70/31; PULSE 50; RESP 17; TEMP 98.6; O2SAT 89
[2024-07-27 05:00] VITALS: BP 112/60; PULSE 62; RESP 17; TEMP 97.7; O2SAT 94
[2024-07-27 06:26] LABS: Chloride 96 mmol/L (98-107); Potassium 3.7 mmol/L (3.5-5.1); Sodium 132 mmol/L (136-145)
[2024-07-27 06:27] LABS: Anion Gap 6 (5-15); Calcium 9.3 mg/dL (8.7-10.4); Carbon Dioxide 30 mmol/L (20-31)
[2024-07-27 06:32] LABS: BUN/Creatinine Ratio 35.8 (10.0-20.0); Glucose 100 mg/dL (74-106)
[2024-07-27 06:44] LABS: Blood Urea Nitrogen 29 mg/dL (9-23)
[2024-07-27 08:00] VITALS: PULSE 42; PULSE 65; RESP 18; O2SAT 92
[2024-07-27 09:00] VITALS: BP 117/43; PULSE 54; RESP 18; TEMP 97.9; O2SAT 92
[2024-07-27] MEDS ORDERED: amLODIPine BESYLATE 5 MG TAB PO SCH (10:30)
[2024-07-27 13:00] VITALS: BP 104/42; PULSE 58; RESP 18; TEMP 98; O2SAT 91
[2024-07-27 15:47] VITALS: BP 117/43; PULSE 65; TEMP 36.7
== END 2024-07-27 16:30 | disposition hospice, home (50) | DRG 644 ==
LOC: ER 15:40 → TELE 19:05 → TELE-WESTW 22:02
PROVIDERS: ADMIT Nurse Practitioner Family; ATTEND Internal Medicine Geriatric Medicine
PROC: 05HB33Z Insertion of Infusion Device into Right Basilic Vein, Percutaneous Approach (ICD-10-PCS; principal; 2024-07-26)
PROC: B54MZZA Ultrasonography of Right Upper Extremity Veins, Guidance (ICD-10-PCS; 2024-07-26)
DX: E22.2 Syndrome of inappropriate secretion of antidiuretic hormone (principal); I50.32 Chronic diastolic (congestive) heart failure; E78.5 Hyperlipidemia, unspecified; E11.9 Type 2 diabetes mellitus without complications; I48.91 Unspecified atrial fibrillation; I11.0 Hypertensive heart disease with heart failure; E87.6 Hypokalemia; G47.00 Insomnia, unspecified; J44.9 Chronic obstructive pulmonary disease, unspecified; I25.10 Atherosclerotic heart disease of native coronary artery without angina pectoris; Z79.01 Long term (current) use of anticoagulants; Z80.1 Family history of malignant neoplasm of trachea, bronchus and lung; Z82.49 Family history of ischemic heart disease and other diseases of the circulatory system; Z82.5 Family history of asthma and other chronic lower respiratory diseases; Z90.49 Acquired absence of other specified parts of digestive tract; Z86.73 Personal history of transient ischemic attack (TIA), and cerebral infarction without residual deficits; Z85.3 Personal history of malignant neoplasm of breast; Z90.710 Acquired absence of both cervix and uterus; I16.0 Hypertensive urgency; T50.2X5A Adverse effect of carbonic-anhydrase inhibitors, benzothiadiazides and other diuretics, initial encounter; Y92.89 Other specified places as the place of occurrence of the external cause
CPT/HCPCS: 36415; 70450; 80048; 80053; 81001; 82533; 83735; 83930; 83935; 84133; 84300; 84443; 84484; 84550; 85025; 93306; 97163; 99291; G0378